=== PATIENT | male | born 1990 | race Caucasian/White ===

== ENCOUNTER 2019-11-08 11:59 | Emergency (ER) | payer SELFPAY ==
[2019-11-08 12:00] VITALS: BP 140/87; PULSE 83; RESP 16; TEMP 36.3; O2SAT 99; BMI 24.2
[2019-11-08 12:07] VITALS: O2SAT 98
--- NOTE | 2019-11-08 12:09 | ED.RN ---
PT TOLD DR KRISHNAN THAT HE IS GOING TO LEAVE BECAUSE WE ARE MAKING HIM KEEP HIS MASK ON. IT WAS EXPLAINED WHY HE NEEDED TO KEEP IT ON. PT THEN AMBULATED FROM ER WITHOUT DISTRESS NOTED WITH MASK IN PLACE.
--- NOTE | 2019-11-08 12:10 | ED.DCSUM_ITS ---
- ER Visit Summary Date of Service: 11/08/19 Chief Complaint: Shortness of breath and tired. History of Present Illness: The patient is a 29 M patient reports that he been living in [place] for 3 to 4 months. He returned yesterday. He is not been quarantined. He states he has shortness of breath began 4 days ago. States he is been tired since yesterday. Review of systems patient denies fever or chills. He denies cough. He reports that he has a sore throat here and there, not necessarily. Physical Examination: Vitals: Stable. Afebrile. General: Well-nourished and well-developed. Head: Normocephalic atraumatic. Neck: Supple, no lymphadenopathy. No JVD. Nontender. Cardiovascular: Regular rate and rhythm. No murmurs. Respiratory: No respiratory distress. Clear to auscultation bilaterally. Abdominal: Soft, nontender, nondistended, normal bowel sounds. No guarding, rebound, or peritoneal signs. Back: Nontender. Extremities: Nontender, no edema. Skin: Normal color, no rash. Neurologic: Alert and oriented ?3. Cranial nerves II through XII are intact. Normal strength and sensation. Psych: Normal affect. Test results: Clinical Impression(s) from Imaging Studies Chest X-Ray 11/08/19 13:35 IMPRESSION: Prominence of the pulmonary arteries bilaterally. Electronically Signed: Christopher Thorntonjose, at 13:59 EDT , Service support , Emergency Department Course and Treatment: Patient is resting comfortably. Treatment Plan: Patient will be discharged with instructions to follow-up with Dr. Ohara in 2 weeks if not improving. He is instructed to quarantine for the next 2 weeks. Return to the emergency department for any worsening symptoms. Disposition: To home in improved and stable condition. Impression: 1. Dyspnea. 2. Suspected COVID-19 exposure. This note was generated with vChatteration software. It may contain incorrect words, spelling, and punctuation that were not noted in review of the chart prior to signing ED Disposition - Plan for ED Patient: Disposition: Home or Assisted Living Instructions: ED Weakness [facility] Referrals: Candida Kapoor MD [STAFF PHYSICIAN] - 1 Week if not improving
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
--- NOTE | 2019-11-08 13:35 | RAD_ITS ---
STUDY: X-RAY CHEST REASON FOR EXAM: Male, 29 years old. SOB, FEELING TIRED TECHNIQUE: Single AP portable view of the chest. COMPARISON: None. FINDINGS: The lungs are clear and expanded. There is no demonstrated pleural abnormality. Normal size heart. Normal mediastinum and sumi. There is prominence of the pulmonary hilar arteries without peripheral pulmonary vascular congestion, suggesting pulmonary hypertension. Normal visualized aortic arch and descending thoracic aorta. Normal visualized thoracic spine. Normal visualized ribs, clavicles, and shoulders. There is no demonstrated abnormality of the visualized soft tissue structures of the upper abdomen. RAD/Chest 1 View (Portable) IMPRESSION: Prominence of the pulmonary arteries bilaterally. Electronically Signed: Christopher Spencer, at 13:59 EDT , Service support ,
== END 2019-11-08 14:40 | disposition home or self-care (01) ==
LOC: ED 13:19
PROVIDERS: Emergency Provider Emergency Medicine
DX: R06.00 Dyspnea, unspecified (principal); R53.83 Other fatigue; F17.200 Nicotine dependence, unspecified, uncomplicated
CPT/HCPCS: 71045; 99282

== ENCOUNTER 2019-11-14 18:41 | Emergency (ER) | payer SELFPAY ==
[2019-11-14 18:42] VITALS: BP 129/106; PULSE 107; RESP 16; TEMP 36.4; O2SAT 97; BMI 25.0
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
[2019-11-14] MEDS: Ibuprofen 200 MG Tablet 800 MG PO (19:33)
== END 2019-11-14 19:35 | disposition home or self-care (01) ==
LOC: ED 19:20
PROVIDERS: Emergency Provider Emergency Medicine
DX: M72.2 Plantar fascial fibromatosis (principal); F17.200 Nicotine dependence, unspecified, uncomplicated; Z59.0 Homelessness
CPT/HCPCS: 99281; 99282